=== PATIENT | male | born 1980 | race African-American/Black ===

== ENCOUNTER 2021-12-25 20:22 | Emergency (ER) | payer OTHER ==
[~2021-12-25] VITALS: Ht 172.7 cm; Wt 108.9 kg
== END 2021-12-25 23:42 ==
LOC: ER 20:22
DX: I46.9 Cardiac arrest, cause unspecified (principal); I12.9 Hypertensive chronic kidney disease with stage 1 through stage 4 chronic kidney disease, or unspecified chronic kidney disease; N18.9 Chronic kidney disease, unspecified; E78.5 Hyperlipidemia, unspecified
CPT/HCPCS: 31500; 92950